=== PATIENT | female | born 1990 | race Caucasian/White ===

== ENCOUNTER 2017-09-10 11:58 | Emergency (ER) | payer MEDICAID, OTHER ==
[~2017-09-10] VITALS: Ht 157.5 cm; Wt 96.0 kg
[~2017-09-10 11:58] MED LIST: METH36; RISP0.5T2
[2017-09-10 12:15] VITALS: BP 124/70; PULSE 75; RESP 20; TEMP 98.1; O2SAT 99
[2017-09-10] MEDS ORDERED: AMOX875T PO (12:43)
[2017-09-10] MEDS ORDERED: IBUP-232 PO (12:43)
[2017-09-10] MEDS ORDERED: FLUT1SPR5 EACH NARE (12:43)
--- NOTE | 2017-09-10 12:48 | PD ---
HPI Chief Complaint: ENT Complaint Time Seen by Provider: 12:18 Travel History International Travel<30 days: No Contact w/Intl Traveler<30days: No Traveled to known affect area: No History of Present Illness HPI 27-year-old female presents emergency department with right ear pain for the past several days. Patient also complains of intermittent headaches, sinus congestion, postnasal drip worse at night. Patient has had intermittent sore throat as well. Patient denies dental pain or pain with chewing. She has no difficulty swallowing. No chest congestion or significant productive cough is noted. No nausea vomiting or heartburn. No abdominal pain. She denies wheezing. No shortness of breath. She is allergic to cortisone. [facility] Past Medical History Medical History: Denies Significant Hx ADHD: No Cancer: No Cardiovascular Problems: No Diabetes: No Diminished Hearing: No Psychiatric: Yes (PT-ODD, ADHD BY HX; ) Immunizations Current: Yes Migraines: No Seizures: No Thyroid Disease: No Ulcer: No Tetanus Vaccination: < 5 Years ?: Not Past Surgical History Surgical History: No Previous Surgery Appendectomy: No Cholecystectomy: No Social History Alcohol Use: No Tobacco Use: No Substance Use: No Allergies-Medications (Allergen,Severity, Reaction): Coded Allergies: cortisone (Unverified Allergy, Unknown, Rash, 09/10/17) Reported Meds & Prescriptions Reported Meds & Active Scripts Active Review of Systems Except as stated in HPI: all other systems reviewed are Neg General / Constitutional: No: Fever, Chills Eyes: No: Visual changes HENT: Positive: Headaches, Sore Throat, Rhinitis, Rhinorrhea, Congestion, Earache, No: Vertigo, Lightheadedness, Nosebleed, Neck Stiffness, Neck Pain, Gingival Bleeding, Dental Difficulties, Ear Discharge Cardiovascular: No: Chest Pain or Discomfort Respiratory: No: Shortness of Breath Gastrointestinal: No: Abdominal Pain Genitourinary: No: Dysuria Musculoskeletal: No: Pain Skin: No Rash Neurologic: No: Weakness Psychiatric: No: Depression Endocrine: No: Polydipsia Hematologic/Lymphatic: No: Easy Bruising Physical Exam Narrative GENERAL: Patient appears mild to moderate distress SKIN: Warm and dry. Normal color. Normal turgor. No rash. HEAD: Atraumatic. Normocephalic. EYES: Pupils equal and round. No scleral icterus. No injection or drainage. ENT: No nasal bleeding or discharge. Mucous membranes pink and moist. Patient has dull erythematous TMs bilaterally more on the right than the left. Patient is mild to moderate sinus tenderness to palpation and percussion to both frontal and maxillary sinuses. Posterior pharynx has mild erythema with cobblestoning and postnasal drip noted. No significant tonsillitis is noted, no exudate. NECK: Trachea midline. Supple without significant lymphadenopathy. CARDIOVASCULAR: Regular rate and rhythm. RESPIRATORY: No accessory muscle use. Clear to auscultation. Breath sounds equal bilaterally. GASTROINTESTINAL: Abdomen soft, non-tender, nondistended. Hepatic and splenic margins not palpable. MUSCULOSKELETAL: Extremities without clubbing, cyanosis, or edema. No obvious deformities. NEUROLOGICAL: Awake and alert. No obvious cranial nerve deficits. Motor grossly within normal limits. Five out of 5 muscle strength in the arms and legs. Normal speech. PSYCHIATRIC: Appropriate mood and affect; insight and judgment normal. Data Data Last Documented VS Vital Signs Date Time Temp Pulse Resp B/P (MAP) Pulse Ox O2 Delivery O2 Flow Rate FiO2 09/10/17 12:15 98.1 75 20 124/70 (88) 99 MDM Medical Decision Making Medical Screen Exam Complete: Yes Emergency Medical Condition: Yes Differential Diagnosis Right otitis media. Sinusitis. Postnasal drip. Narrative Course Patient is given amoxicillin 875 twice daily 10 days. Patient is given Flonase nasal spray 2 sprays each nostril daily. Patient is given ibuprofen 600 mg 3 times daily #30 Work note is given. Diagnosis Primary Impression: Otitis media Qualified Codes: H66.001 - Acute suppurative otitis media without spontaneous rupture of ear drum, right ear Additional Impression: Sinusitis Qualified Codes: J32.4 - Chronic pansinusitis Patient Instructions: General Instructions Departure Forms: Work Release Enter return to work date: Sep 11, 2017 Additional Instructions: Patient is given amoxicillin 875 twice daily 10 days. Patient is given Flonase nasal spray 2 sprays each nostril daily. Patient is given ibuprofen 600 mg 3 times daily #30 Work note is given. Med/Other Pt SpecificInfo: Prescription(s) given Scripts Ibuprofen (Ibuprofen) 600 Mg Tab 600 MG PO Q8H Y for PAIN, #30 TAB 0 Refills Prov: Trell Reed MD 09/10/17 Fluticasone Nasal [place] (Flonase Nasal [place]) 50 Mcg/Act [place] 100 MCG EACH NARE BID for Allergies, #1 BOTTLE 0 Refills Prov: Trell Reed MD 09/10/17 Amoxicillin (Amoxicillin) 875 Mg Tab 875 MG PO BID for Infection for 10 Days, #20 TAB 0 Refills Prov: Trell Reed MD 09/10/17 Disposition: 01 DISCHARGE HOME Condition: Stable Johnson Spear Sep 10, 2017 12:48
== END 2017-09-10 13:08 | disposition home or self-care (01) ==
LOC: NEPK 11:58
DX: H66.91 Otitis media, unspecified, right ear (principal); J32.9 Chronic sinusitis, unspecified; F91.3 Oppositional defiant disorder; F90.9 Attention-deficit hyperactivity disorder, unspecified type; Z88.8 Allergy status to other drugs, medicaments and biological substances
CPT/HCPCS: 99283

== ENCOUNTER 2017-09-24 16:47 | Emergency (ER) | payer OTHER ==
[~2017-09-24 16:47] MED LIST changes: +AMOX875T PO; +FLUT1SPR5 EACH NARE; +IBUP-232 PO; -METH36; -RISP0.5T2
[2017-09-24 17:27] VITALS: BP 135/96; PULSE 71; RESP 16; TEMP 97.3; O2SAT 100
[2017-09-24] MEDS ORDERED: VENTAER INH (18:52)
--- NOTE | 2017-09-24 19:23 | PD ---
HPI Chief Complaint: Medical Clearance Time Seen by Provider: 19:08 Travel History International Travel<30 days: No Contact w/Intl Traveler<30days: No Traveled to known affect area: No History of Present Illness HPI The patient was seen and examined in the presence of the nurse. This patient left work earlier today because she felt anxious and short of breath. She reports history of asthma and is a smoker. No cough or chest pain or fever or presyncopal symptoms. Spell lasted 20 minutes and resolved. She feels better at this time. She has history of anxiety troubles. No alleviating factors. No exacerbating factors. She wonders if she is a diabetic PFSH Past Medical History ADHD: No Asthma: Yes Anxiety: Yes Depression: Yes Cancer: No Cardiovascular Problems: No Diabetes: No Diminished Hearing: No Psychiatric: Yes (PT-ODD, ADHD BY HX; ) Respiratory: Yes Immunizations Current: Yes Migraines: No Seizures: No Thyroid Disease: No Ulcer: No Tetanus Vaccination: < 5 Years Influenza Vaccination: No ?: Not LMP: LAST WEEK Past Surgical History Appendectomy: No Section: Yes Cholecystectomy: No Tympanostomy Tube: Yes Social History Alcohol Use: No Tobacco Use: Yes Substance Use: No Allergies-Medications (Allergen,Severity, Reaction): Coded Allergies: cortisone (Unverified Allergy, Unknown, Rash, 09/24/17) Reported Meds & Prescriptions Reported Meds & Active Scripts Active Ibuprofen 600 Mg Tab 600 Mg PO Q8H PRN Flonase Nasal [place] (Fluticasone Nasal [place]) 50 Mcg/Act [place] 100 Mcg EACH NARE BID Amoxicillin 875 Mg Tab 875 Mg PO BID 10 Days Reported Ventolin Hfa 18 GM Inh (Albuterol Sulfate) Unknown Strength Aer Unknown Dose INH Q4-6H PRN Review of Systems General / Constitutional: No: Fever Eyes: No: Visual changes HENT: No: Headaches Cardiovascular: No: Chest Pain or Discomfort Respiratory: Positive: Shortness of Breath Gastrointestinal: No: Abdominal Pain Genitourinary: No: Dysuria Musculoskeletal: No: Pain Skin: No Rash Neurologic: No: Weakness Psychiatric: No: Depression Endocrine: No: Polydipsia Hematologic/Lymphatic: No: Easy Bruising Physical Exam Narrative GENERAL: Well-nourished, well-developed patient in no apparent distress. SKIN: Focused skin assessment reveals no rash and nodules. Skin is Warm and dry. HEAD: Atraumatic. Normocephalic. EYES: Pupils equal and round. No scleral icterus. No injection or drainage. ENT: No nasal bleeding or discharge. Mucous membranes pink and moist. NECK: Trachea midline. No JVD. CARDIOVASCULAR: Regular rate and rhythm. No murmur appreciated. RESPIRATORY: No accessory muscle use. Clear to auscultation. Breath sounds equal bilaterally. GASTROINTESTINAL: Abdomen soft, non-tender, nondistended. Hepatic and splenic margins not palpable. MUSCULOSKELETAL: No obvious deformities. No clubbing. No cyanosis. No edema. NEUROLOGICAL: Awake and alert. No obvious cranial nerve deficits. Motor grossly within normal limits. Normal speech. PSYCHIATRIC: Appropriate mood and affect; insight and judgment normal. Data Data Last Documented VS Vital Signs Date Time Temp Pulse Resp B/P (MAP) Pulse Ox O2 Delivery O2 Flow Rate FiO2 09/24/17 17:27 97.3 71 16 135/96 (109) 100 Orders Orders Chest, Single Ap (09/24/17 ) Bedside Glucose [email or web address] (09/24/17 19:19) [facility] Medical Decision Making Medical Screen Exam Complete: Yes Emergency Medical Condition: Yes Medical Record Reviewed: Yes Differential Diagnosis Asthma, bronchitis, anxiety Narrative Course I have reviewed the patient's electronic medical record. Accu-Chek is normal Reviewed her chest x-ray which is normal I rechecked the patient is feeling asymptomatic. She is eating fast food at the bedside. Diagnosis Primary Impression: Anxiety attack Additional Impression: Shortness of breath Additional Instructions: The patient was advised to follow up with their physician and return if they worsen. Med/Other Pt SpecificInfo: Other Disposition: 01 DISCHARGE HOME Condition: Stable Phil Baker MD Sep 24, 2017 19:23
--- NOTE | 2017-09-24 20:27 | RADRPT ---
EXAM DATE/TIME: 09/24/2017 19:56 [facility] COMPARISON: No previous studies available for comparison. INDICATIONS : Short of breath. MEDICAL HISTORY : Asthma. SURGICAL HISTORY : None. ENCOUNTER: Initial ACUITY: 1 day PAIN SCORE: 0/10 LOCATION: Bilateral chest FINDINGS: A single view of the chest demonstrates the lungs to be symmetrically aerated without evidence of mas s, infiltrate or effusion. The cardiomediastinal contours are unremarkable. Osseous structures are intact. CONCLUSION: No evidence of acute cardiopulmonary disease. Ezequiel Justice MD on September 24, 2017 at 20:24 Board Certified Radiologist. This report was verified electronically.
== END 2017-09-24 21:19 | disposition home or self-care (01) ==
LOC: NEPD 16:47
DX: F41.1 Generalized anxiety disorder (principal); R06.02 Shortness of breath; J45.909 Unspecified asthma, uncomplicated; Z72.0 Tobacco use
CPT/HCPCS: 71045; 99283